=== PATIENT | female | born 1975 | race African-American/Black ===

== ENCOUNTER 2016-08-26 19:40 | Emergency (ER) | payer BC ==
[~2016-08-26] VITALS: Ht 160 cm; Wt 125.1 kg
[~2016-08-26 19:40] MED LIST: AMLODIPINE BESYL5 MG PO; BP MED X 2; HYDROCHLOROTHIA25 MG PO; HYDROCODON-ACE1 EAC7 PO; OMEPRAZOLE40 M1 PO; REGLAN10 MG PO
[2016-08-26 20:52] LABS: MCH 26.5 PG (29.0-34.0); MCHC 32.3 G/DL (30.0-36.0); MCV 81.9 FL (83-99); MEAN PLAT.VOLUME 10.2 uM^3 (9.5-12.4); PLATELET COUNT 335 K/uL (156-360); RBC DIS.WIDTH-CV 14.9 % (11.8-14.6); RED BLOOD COUNT 4.76 M/uL (3.80-5.20); WHITE BLOOD COUNT 11.3 K/uL (4.1-10.2)
[2016-08-26 21:01] LABS: CHLORIDE 100 mEq/L (99-109); POTASSIUM 3.5 mEq/L (3.7-5.4); SODIUM 138 mEq/L (136-147)
[2016-08-26 21:03] LABS: GLUCOSE 87 mg/dL (70-99)
[2016-08-26 21:05] LABS: ANION GAP 11 MEQ/L (2-14)
[2016-08-26 21:07] LABS: GFR ESTIMATE (CALCULATED) > 59 mL/min/
[2016-08-26 21:08] LABS: UREA NITROGEN (BUN) 16 mg/dL (9-23)
[2016-08-26 21:16] LABS: TROP-I INTERPRETATION NEGATIVE; TROPONIN-I < 0.01 ng/mL (0.0-0.30)
[2016-08-26] MEDS ORDERED: MAALOX ADVANCE355 ML PO (22:26)
[2016-08-26] MEDS ORDERED: ZANTAC150 MG PO (22:26)
[2016-08-26 22:48] VITALS: BP 139/78
== END 2016-08-26 22:50 | disposition home or self-care (01) ==
LOC: EME 19:40
PROVIDERS: Emergency Medicine
DX: R07.9 Chest pain, unspecified (principal); K21.9 Gastro-esophageal reflux disease without esophagitis; I10 Essential (primary) hypertension
CPT/HCPCS: 71020; 80048; 84484; 85027; 93005; 99281; 99285